=== PATIENT | female | born 1990 | race Hispanic/Latino ===

== ENCOUNTER → 2018-04-03 | Outpatient (CLI) | payer BC ==
[2018-04-03 13:18] LABS: BASO % 0.5 % (0.0-1.0); EOS % 0.5 % (0.0-3.0); HEMATOCRIT 41.1 % (36.0-47.0); HEMOGLOBIN 13.7 g/dl (12.0-15.5); LYMPH # 1.5 10^3/uL (1.5-6.5); LYMPH % 24.1 % (24.0-44.0); MEAN CORPUSCULAR HEMOGLOBIN 29.1 pg (27.0-33.0); MEAN CORPUSCULAR HGB CONC 33.3 g/dl (32.0-36.5); MEAN CORPUSCULAR VOLUME 87.4 fl (80.0-96.0); MONO # 0.5 10^3/uL (0.0-0.8); MONO % 7.5 % (0.0-5.0); NEUTROPHILS # 4.1 10^3/uL (1.8-7.7); NEUTROPHILS % 67.2 % (36.0-66.0); PLATELET COUNT, AUTOMATED 285 10^3/uL (150-450); WHITE BLOOD COUNT 6.1 10^3/uL (4.0-10.0)
[2018-04-04 16:20] LABS: HEPATITIS C VIRUS ABY INDEX 0.1 INDEX (<0.8); HIV 1&2 SCREEN CENTAUR NEGATIVE (NEGATIVE); RUBELLA IgG QUALITATIVE IMMUNE (IMMUNE)
== END ==
LOC: M SMT 09:59
PROVIDERS: ATTEND Specialist
DX: Z36.89 Encounter for other specified antenatal screening (principal)

== ENCOUNTER → 2018-05-04 | Outpatient (CLI) | payer BC ==
[2018-05-04 21:00] LABS: CHLAMYDIA DNA AMPLIFICATION NEGATIVE (NEGATIVE); GC DNA AMPLIFICATION NEGATIVE (NEGATIVE)
== END ==
LOC: M SMT 14:25
PROVIDERS: ATTEND Advanced Practice Midwife
DX: D64.9 Anemia, unspecified (principal)

== ENCOUNTER → 2018-06-14 | Outpatient (REF) | payer BC | LOC: M LAB REF 13:29 | PROVIDERS: ATTEND Advanced Practice Midwife | DX: O99.012 Anemia complicating pregnancy, second trimester (principal); Z3A.00 Weeks of gestation of pregnancy not specified ==

== ENCOUNTER → 2018-06-15 | Outpatient (CLI) | payer BC ==
--- NOTE | 2018-06-15 10:25 | REP ---
OBSTETRIC SONOGRAPHY: HISTORY: Supervision of . For anatomy. FINDINGS: Scanning through the gravid uterus demonstrates a viable single intrauterine gestation in a cephalic lie. motion is observed and heart rate is recorded at 157 beats per minute. The placenta is posterior grade 0 without evidence of previa or abruption. Amniotic fluid is subjectively normal. Closed cervical length is 4.4 cm, measured transabdominally. No extrauterine abnormalities observed. No anomaly is seen. The following anatomic structures are identified and felt to be sonographically unremarkable: cranium, choroid plexus, cavum, cerebellum and posterior fossa, face and profile, lungs, four-chamber heart with left and right ventricular outflow tract views, diaphragm, left-sided stomach, abdominal wall cord insertion, three-vessel umbilical cord, kidneys and bladder, spine, upper and lower extremities. Biometry Chart: BPD 4.2 cm = 18 weeks 5 days HC 15.3 cm = 18 weeks 2 days AC 12.8 cm = 18 weeks 2 days FL 2.8 cm = 18 weeks 5 days HL 2.6 cm = 18 weeks 2 days HC/AC ratio normal 1.20 Cephalic index normal 0.76 Estimated weight 242 grams, 0 pounds 8 ounces, 42nd percentile for 18 weeks 4 days. IMPRESSION: Viable single intrauterine gestation 18 weeks 3 days by today's composite sonographic criteria. ROSA ISELA by today's sonography November 13, 2018. anatomic survey is felt to be complete. Electronically Signed by Omar Anthony MD 06/15/2018 01:33 P
== END ==
LOC: M RAD 09:10
PROVIDERS: ATTEND Advanced Practice Midwife
DX: O99.012 Anemia complicating pregnancy, second trimester (principal); Z3A.18 18 weeks gestation of pregnancy

== ENCOUNTER → 2018-08-09 | Outpatient (CLI) | payer BC ==
[2018-08-09 14:14] LABS: HEMATOCRIT 35.6 % (36.0-47.0); HEMOGLOBIN 11.4 g/dl (12.0-15.5); MEAN CORPUSCULAR HEMOGLOBIN 28.7 pg (27.0-33.0); MEAN CORPUSCULAR VOLUME 89.7 fl (80.0-96.0); PLATELET COUNT, AUTOMATED 288 10^3/uL (150-450); RED BLOOD COUNT 3.97 10^6/uL (4.00-5.40); WHITE BLOOD COUNT 8.2 10^3/uL (4.0-10.0)
[2018-08-09 14:29] LABS: FERRITIN 4 NG/ML (8-252); GLUCOSE CHALLENGE TEST 1 HOUR 100 MG/DL (LESS THAN 140)
== END ==
LOC: M SMT 09:58
PROVIDERS: ATTEND Advanced Practice Midwife
DX: Z34.82 Encounter for supervision of other normal pregnancy, second trimester (principal)

== ENCOUNTER → 2018-10-19 | Outpatient (CLI) | payer BC ==
[~2018-10-19] MED LIST: PRENTAB9 PO
== END ==
LOC: M SMT 10:20
PROVIDERS: ATTEND Obstetrics & Gynecology
DX: Z34.83 Encounter for supervision of other normal pregnancy, third trimester (principal)

== ENCOUNTER → 2018-10-19 | Outpatient (REF) | payer BC | LOC: M LAB REF 13:26 | PROVIDERS: ATTEND Obstetrics & Gynecology | DX: Z34.83 Encounter for supervision of other normal pregnancy, third trimester (principal) ==

== ENCOUNTER 2018-11-03 03:13 | Inpatient (IN) | payer BC ==
[2018-11-03] VITALS (14 sets, daily range): BP systolic 99–119; BP diastolic 53–76
[~2018-11-03] VITALS: Ht 175.3 cm; Wt 73.0 kg
[2018-11-03 04:30] LABS: HEMATOCRIT 33.9 % (36.0-47.0); HEMOGLOBIN 10.9 g/dl (12.0-15.5); MEAN CORPUSCULAR HGB CONC 32.2 g/dl (32.0-36.5); MEAN CORPUSCULAR VOLUME 84.1 fl (80.0-96.0); PLATELET COUNT, AUTOMATED 233 10^3/uL (150-450); RED BLOOD COUNT 4.03 10^6/uL (4.00-5.40); WHITE BLOOD COUNT 9.4 10^3/uL (4.0-10.0)
[2018-11-03] MEDS ORDERED: FENTANYL 2MCG/ML ROPIVACAINE 0.2% IN 0.9% NACL 100ML IVBAG As Ordered ONE (05:13)
[2018-11-03] MEDS ORDERED: EPIDURAL/PCA KEYS XX PRN (05:38)
[2018-11-03] MEDS ORDERED: ePHEDrine SULFATE 25 MG/5 ML(5MG/ML) SYRINGE IV PRN (05:38)
[2018-11-03] MEDS ORDERED: EPIDURAL COMMENT XX SCH (05:38)
[2018-11-03] MEDS ORDERED: REFRIGERATOR IV KEYS XX PRN (05:38)
[2018-11-03] MEDS ORDERED: diphenhydrAMINE INJ 50MG/ML VIAL (J1200) IV PRN (05:38)
[2018-11-03] MEDS ORDERED: NALOXONE INJ 0.4 MG/1 ML VIAL (J2310) IV PRN (05:38)
[2018-11-03] MEDS ORDERED: FENTANYL/ROPIVACAINE/NACL BAG 100 ML EPIDURAL SCH (05:38)
[2018-11-03] MEDS ORDERED: ONDANSETRON 4MG/2ML VIAL (J2405) IV PRN (05:38)
[2018-11-03] MEDS ORDERED: PRENTAB9 PO (06:15)
--- NOTE | 2018-11-03 07:04 | IPNPDOC ---
Obstetrical Progress Note Date of Service Nov 03, 2018 Subjective Patient is comfortable with her epidural. Objective Vital Signs Date Time Temp Pulse Resp B/P (MAP) Pulse Ox O2 Delivery O2 Flow Rate FiO2 11/03/18 05:53 73 106/65 (79) 11/03/18 05:42 18 11/03/18 03:38 98.8 99 Assessment Heart Rate (FHR): 135 Variability: Moderate Accelerations: Positive Decelerations: None Heart Rate Tracing: Category I Tocometer Contractions: Yes Frequency: regular Sterile Vaginal Examination Dilation: 6 cm Effacement (%): 100% Station: 0 Postion/Presentation: Cephalic presentation Assessment and Plan EGA at Admission: 38.5 Status: Reassuring Group B Streptococcus: Negative Anticipate: Vaginal Delivery Additional Comments AROM to a scant amount of clear fluid. CHARLEY GALEAS CNM Nov 03, 2018 07:04
[2018-11-03] MEDS ORDERED: OXYTOCIN 30 UNITS IN 0.9% NaCl 500ML IV BAG (J2590) As Ordered ONE (07:39)
--- NOTE | 2018-11-03 08:36 | HPE ---
DATE OF ADMISSION: 11/03/2018 HISTORY OF PRESENT ILLNESS (HPI): Patient is a 28-year-old female who is a 3, para 0-1-1-1, at 38 weeks and 5 days based off of her last menstrual cycle. Patient's has been uncomplicated. She initiated care in her first trimester. She presents to labor and delivery tonight with complaints of contractions that started at midnight. She reports active movement. She denies leaking of fluid or vaginal bleeding. PAST MEDICAL HISTORY: Varicella as a child. SURGICAL HISTORY: Tonsillectomy and rhinoplasty. FAMILY HISTORY: Noncontributory. SOCIAL HISTORY: Patient is . She denies being a smoker. She denies any history of alcohol or drug abuse prior to or during . She has no history of any sexually transmitted infections. PAST PREGNANCIES: April 2013 at 20 weeks, she had a dilation and curettage (D and C). August 2017 at 41 weeks, she had a vaginal delivery of a living female weighing 7 pounds 12 ounces and no complications. LABS: Her blood type is A positive. Her antibody screen is negative. Her hemoglobin and hematocrit at first trimester is 13.7 and 41.1 with platelets of 285. Rubella is immune. VDRL is nonreactive. She did have a positive urinary tract infection (UTI), which was treated, with a repeat that showed no growth. Hepatitis B surface antigen is negative. HIV is negative. Hepatitis C is negative. Gonorrhea and chlamydia are both negative. NIPT testing showed low risk for Down's trisomy 13, trisomy 18, and normal XX female. Diabetes screen was 100, and her hemoglobin and hematocrit level were 11.4, 35.6 with platelets of 288. HIV in the third trimester was negative, and group B Streptococcus is negative. heart rate is 140, moderate variability, positive accelerations, no decelerations. Contractions are every 2-6 minutes. Patient is sitting up and moving with her contractions. VITAL SIGNS: Blood pressure is 119/76, heart rate 74, respiratory rate 16, temperature 98.2. STERILE VAGINAL EXAM: 5 cm dilated, 90% effaced, -1 station, anterior, soft. PHYSICAL ASSESSMENT: GENERAL: Alert and oriented times three. RESPIRATORY: Regular rate with no use of accessory muscles. ABDOMEN: Gravid. Cephalic presentation noted via vaginal exam and Ángel maneuver. LOWER EXTREMITIES: Generalized edema. No pitting edema. No clonus noted. ASSESSMENT: Intrauterine (IUP) at 38 weeks and 5 days gestation, active labor, group B Streptococcus (GBS) negative, category 1 heart rate tracing. PLAN: Admit to labor and delivery. Saline lock and labs per unit protocol. Out of bed ad ag. Clear liquid diet. Anesthesia consult per patient's request. Anticipate cervical change and spontaneous vaginal delivery. Consider amniotic artificial rupture of membrane.
[2018-11-03] MEDS ORDERED: DOCUSATE SODIUM 100 MG CAP PO PRN (09:00)
[2018-11-03] MEDS ORDERED: RHOGAM 300 MCG (1500 IU) INJ (J2790) IM SCH (09:00)
[2018-11-03] MEDS ORDERED: DIBUCAINE 1% OINTMENT 30GM TOP PRN (09:00)
[2018-11-03] MEDS ORDERED: METHYLERGONOVINE MALEATE 0.2 MG TAB PO PRN (09:00)
[2018-11-03] MEDS: PRENATAL VITAMINS CHEWABLE TABLET PO SCH (09:00)
[2018-11-03] MEDS ORDERED: ANUSOL HC CREAM 30GM TOP PRN (09:00)
[2018-11-03] MEDS ORDERED: IBUPROFEN 600 MG TAB PO PRN (09:00)
[2018-11-03] MEDS ORDERED: ACETAMINOPHEN TAB 650MG DOSE (2X325MG) PO PRN (09:00)
[2018-11-03] MEDS ORDERED: MEASLES,MUMPS,RUBELLA VACCINE INJ (MMR-II) (90707) SC SCH (09:00)
[2018-11-03] MEDS ORDERED: OXYTOCIN DRIP 30 UNITS in APPROPRIATE DILUENT 1 EA IV SCH (09:00)
[2018-11-03] MEDS ORDERED: SLF 3 ML SYR IV PRN (10:30)
[2018-11-03] MEDS: IBUPROFEN 800 MG TAB PO PRN (13:28)
[2018-11-03] MEDS: ACETAMINOPHEN 500 MG TAB PO PRN (19:49)
[2018-11-03] MEDS: SLF 3 ML SYR IV SCH (22:00)
[2018-11-04] MEDS: IBUPROFEN 800 MG TAB PO PRN ×2 (02:02→10:49)
[2018-11-04 06:00] VITALS: BP 105/63
[2018-11-04] MEDS: ACETAMINOPHEN 500 MG TAB PO PRN (06:04)
[2018-11-04] MEDS: SLF 3 ML SYR IV SCH (06:04)
[2018-11-04] MEDS: PRENATAL VITAMINS CHEWABLE TABLET PO SCH (10:49)
--- NOTE | 2018-11-05 19:21 | DN ---
DATE: 11/03/2018 at 0809 STATUS: Delivered. Spontaneous vaginal delivery. PROVIDER: Tamela Duncan CNM, JASMIN ANESTHESIA: Epidural. ESTIMATED BLOOD LOSS: 350 mL. FINDINGS: Female, 6 pounds, 14 ounces, 3130 grams, nuchal cord times one tight, scores 9 and 9. The patient is a 28-year-old female who is now a 3, para 2-0-1-2 at 38 weeks and five days who presented to labor and delivery in active labor. She received an epidural for anesthesia. She progressed to fully dilated at 0801 and pushed to a living female in the occiput anterior (OA) position with restitution to right occiput transverse (ROT). A tight nuchal cord was noted with delivery of the head. The anterior shoulder delivered with ease and to corpus immediately followed. Somersault maneuver was used to deliver the body. The baby was placed on the maternal abdomen active and crying with stimulation. The cord was clamped after pulsations ceased times two and cut by the father of the baby. A three-vessel cord was noted. The placenta delivered spontaneously and intact at 0814. Uterine hemostasis was achieved via rapid infusion of IV pitocin and fundal massage. The vagina, cervix and perineum was inspected and found to be intact. Mother plans on her . They plan on naming her Cattya. Both mother and baby are in stable condition. Both counts of instruments and sponges are correct.
== END 2018-11-04 13:31 | disposition home or self-care (01) | DRG 560 ==
LOC: M LDO 03:13 → M LDI 04:00 → M OBS 10:25
PROVIDERS: ADMIT Advanced Practice Midwife; ATTEND Advanced Practice Midwife
PROC: 10E0XZZ Delivery of Products of Conception, External Approach (ICD-10-PCS; principal; 2018-11-03)
PROC: 10907ZC Drainage of Amniotic Fluid, Therapeutic from Products of Conception, Via Natural or Artificial Opening (ICD-10-PCS; 2018-11-03)
DX: O69.1XX0 Labor and delivery complicated by cord around neck, with compression, not applicable or unspecified (principal); Z3A.38 38 weeks gestation of pregnancy; Z37.0 Single live birth

== ENCOUNTER → 2019-03-11 | Outpatient (CLI) | payer BC | LOC: M PLALAB 15:46 | PROVIDERS: ATTEND Obstetrics & Gynecology | DX: Z34.91 Encounter for supervision of normal pregnancy, unspecified, first trimester (principal) ==

== ENCOUNTER → 2019-05-24 | Outpatient (CLI) | payer BC ==
--- NOTE | 2019-05-24 12:33 | REP ---
Pelvic ultrasound to evaluate IUD placement, pelvic pain and bleeding: The study is performed with transabdominal, endovaginal and Doppler ultrasound assessment: The uterus is retroverted. The uterus is normal size measuring 6.1 x 3.6 x 4.0 cm. The endometrium is not thickened measuring up to 7 ml. There is an IUD within the 12 canal in the body of the uterus. Right ovary: The right ovary measures 3.6 by 1.0 x 1 x 1 cm and is normal size. There is no dominant mass or cyst. With color Doppler assessment there is vascular flow in the right ovary. Left ovary: The left ovary measures 2.5 x 1.3 x 1-2 cm and is normal size. There is no dominant mass or cyst. With color Doppler assessment there is vascular flow in the left ovary. There is no free fluid in the pelvis. Impression: The IUD is in the endometrial canal in the body of the uterus. The uterus is retroverted. Because of the retroverted position of the uterus is difficult to determine by ultrasound with certainty whether the wings of the IUD are in the cornua or if they are in the central endometrial canal. Follow-up CT or MRI with 3-D post processing reconstruction might be helpful if felt clinically indicated. The ovaries are unremarkable. Electronically Signed by Morgan Campbell MD 05/24/2019 12:24 P
== END ==
LOC: M WHC 10:05
PROVIDERS: ATTEND Advanced Practice Midwife
DX: N85.4 Malposition of uterus (principal); R10.2 Pelvic and perineal pain; Z97.5 Presence of (intrauterine) contraceptive device

== ENCOUNTER → 2019-12-04 | Outpatient (CLI) | payer BC ==
--- NOTE | 2019-12-10 14:25 | REP ---
LIMITED OBSTETRICAL ULTRASOUND CLINICAL: Spotting, for dating and viability. Threatened . TECHNIQUE: Transabdominal and transvaginal first trimester obstetrical ultrasound with color Doppler evaluation. FINDINGS: Examination demonstrates a small empty gestational sac with mean sac diameter of 4 mm, corresponding to 4 weeks 6 days gestational age. No pole or yolk sac is identified. A subchorionic hemorrhage was also noted measuring approximately 18 x 7 x 5 mm. IMPRESSION: Empty gestational sac and small subchorionic hemorrhage noted. Findings may represent in progress. Correlation with physical examination is recommended and repeat ultrasound may be warranted. MTDD
== END ==
LOC: M WHC 11:11
PROVIDERS: ATTEND Advanced Practice Midwife
DX: O20.0 Threatened abortion (principal); Z3A.01 Less than 8 weeks gestation of pregnancy

== ENCOUNTER → 2019-12-04 | Outpatient (CLI) | payer BC | LOC: M PLALAB 11:11 | PROVIDERS: ATTEND Advanced Practice Midwife | DX: O20.0 Threatened abortion (principal); Z3A.00 Weeks of gestation of pregnancy not specified ==

== ENCOUNTER → 2019-12-06 | Outpatient (CLI) | payer BC | LOC: M PLALAB 12:41 | PROVIDERS: ATTEND Advanced Practice Midwife | DX: O20.0 Threatened abortion (principal); Z3A.00 Weeks of gestation of pregnancy not specified ==

== ENCOUNTER → 2020-01-03 | Outpatient (REF) | payer BC ==
[2020-01-03 15:08] LABS: HEMATOCRIT 38.6 % (36.0-47.0); HEMOGLOBIN 12.5 g/dl (12.0-15.5); MEAN CORPUSCULAR HEMOGLOBIN 27.1 pg (27.0-33.0); MEAN CORPUSCULAR HGB CONC 32.4 g/dl (32.0-36.5); MEAN CORPUSCULAR VOLUME 83.5 fl (80.0-96.0); PLATELET COUNT, AUTOMATED 300 10^3/uL (150-450); RED BLOOD COUNT 4.62 10^6/uL (4.00-5.40)
[2020-01-03 16:18] LABS: FOLATE 15.4 NG/ML (>5.4); HEPATITIS C VIRUS ABY INDEX 0.2 INDEX (<0.8); HIV 1&2 SCREEN CENTAUR NEGATIVE (NEGATIVE)
== END ==
LOC: M PLALAB 12:33
PROVIDERS: ATTEND Advanced Practice Midwife
DX: Z34.81 Encounter for supervision of other normal pregnancy, first trimester (principal)

== ENCOUNTER → 2020-01-22 | Outpatient (CLI) | payer BC | LOC: M PLALAB 10:37 | PROVIDERS: ATTEND Advanced Practice Midwife | DX: Z34.81 Encounter for supervision of other normal pregnancy, first trimester (principal); Z3A.00 Weeks of gestation of pregnancy not specified ==

== ENCOUNTER → 2020-03-20 | Outpatient (CLI) | payer BC ==
--- NOTE | 2020-03-20 16:56 | REP ---
INDICATION: ANATOMY COMPARISON: None. TECHNIQUE: Transabdominal obstetrical ultrasound with color Doppler evaluation. FINDINGS: Examination demonstrates a single live intrauterine in variable presentation. motion is identified by technologist. Placenta is noted anterior and grade 1 without evidence for placenta previa or abruption. Amniotic fluid volume is normal. Cervix measures 3.3 cm in length and appears closed.. Gestational age by LMP 21 weeks 6 days with ROSA ISELA 07/25/2020. Gestational age by current measurements 20 weeks 1 day with ROSA ISELA 08/06/2020. FHR equals 158 beats per minute. BPD: 4.5 cm 19 weeks 4 days HC: 17.1 cm 19 weeks 5 days AC: 14.9 cm 20 weeks 1 day FL: 3.4 cm 20 weeks 4 days HL: 3.1 cm 20 weeks 3 days HC/AC: 1.15 Estimated weight 342 grams (83rdpercentile). Anatomical assessment demonstrates normal structures including cranium, choroid plexus, cavum, cerebellum/posterior fossa, facial features, lungs, four-chamber heart/ventricular outflow tracts, diaphragm, stomach, cord insertion/three-vessel cord, kidneys/bladder, spine, and extremities. IMPRESSION: Single live intrauterine in variable presentation demonstrating appropriate estimated weight and growth. Anatomical assessment is complete and normal. <Electronically signed by Oleg Ni > 03/20/20 [id number]
== END ==
LOC: M WHC 12:53
PROVIDERS: ATTEND Advanced Practice Midwife
DX: Z36.89 Encounter for other specified antenatal screening (principal); Z3A.20 20 weeks gestation of pregnancy

== ENCOUNTER → 2020-07-15 | Outpatient (REF) | payer BC | LOC: M SFHCWAGY 12:45 | PROVIDERS: ATTEND Advanced Practice Midwife | DX: Z36.89 Encounter for other specified antenatal screening (principal) ==

== ENCOUNTER → 2020-07-20 | Outpatient (REF) | payer BC ==
[2020-07-20 15:25] LABS: HEMATOCRIT 31.2 % (36.0-47.0); HEMOGLOBIN 9.8 g/dl (12.0-15.5); MEAN CORPUSCULAR HEMOGLOBIN 25.9 pg (27.0-33.0); MEAN CORPUSCULAR HGB CONC 31.4 g/dl (32.0-36.5); MEAN CORPUSCULAR VOLUME 82.3 fl (80.0-96.0); PLATELET COUNT, AUTOMATED 266 10^3/uL (150-450); RED BLOOD COUNT 3.79 10^6/uL (4.00-5.40); WHITE BLOOD COUNT 6.9 10^3/uL (4.0-10.0)
[2020-07-20 15:39] LABS: GLUCOSE CHALLENGE TEST 1 HOUR 108 MG/DL (LESS THAN 140)
[2020-07-20 15:53] LABS: FERRITIN 4 NG/ML (8-252)
== END ==
LOC: M PLALAB 12:55
PROVIDERS: ATTEND Advanced Practice Midwife
DX: Z36.89 Encounter for other specified antenatal screening (principal); Z86.2 Personal history of diseases of the blood and blood-forming organs and certain disorders involving the immune mechanism

== ENCOUNTER → 2020-07-20 | Outpatient (CLI) | payer BC ==
--- NOTE | 2020-07-20 14:53 | REP ---
INDICATION: UTERINE SIZE/DATE DISCREPANCY COMPARISON: 03/20/2020 TECHNIQUE: Transabdominal obstetrical ultrasound with color Doppler evaluation. FINDINGS: Examination demonstrates a single live intrauterine in cephalic presentation. motion is identified by technologist. Placenta is noted anterior and grade 2 without evidence for placenta previa or abruption. Amniotic fluid volume is normal. Cervix appears closed.. Gestational age by LMP and 1st U/S 39 weeks 2 days with ROSA ISELA 07/25/2020. Gestational age by current measurements 36 weeks 4 days with ROSA ISELA 08/13/2020. Gestational age by known ROSA ISELA of 08/10/2020 at 37 weeks 0 days FHR equals 142 beats per minute. BPD: 9.1 cm at 36 weeks 5 days HC: 32.9 cm at 37 weeks 2 days AC: 31.6 cm at 35 weeks 4 days FL: 7.2 cm at 37 weeks 0 days HL: 6.2 cm at 36 weeks 1 day HC/AC: 1.04 Estimated weight 2886 grams (36thpercentile based on age at 37 weeks 0 days). YOLY: 11.5 cm (7.5-24.4) Umbilical artery SD ratio: 2.73 (1.59-3.43) Limited anatomical assessment demonstrates normal cranium, cerebral ventricles, choroid plexus, cerebellum, lungs, heart/ventricular outflow tracts, diaphragm, stomach, kidneys/bladder and three-vessel cord. IMPRESSION: Single live intrauterine in cephalic presentation demonstrating appropriate estimated weight. <Electronically signed by Oleg Ni > 07/20/20 [id number]
== END ==
LOC: M WHC 13:00
PROVIDERS: ATTEND Advanced Practice Midwife
DX: O26.843 Uterine size-date discrepancy, third trimester (principal); Z3A.37 37 weeks gestation of pregnancy

== ENCOUNTER 2020-08-03 01:45 | Inpatient (IN) | payer BC ==
[~2020-08-03] VITALS: Ht 170.2 cm; Wt 74.0 kg
[2020-08-03] VITALS (25 sets, daily range): BP systolic 101–131; BP diastolic 56–79
--- NOTE | 2020-08-03 03:04 | HPEPDOC ---
Obstetrical History & Physical General Date of Admission August 03, 2020 at 02:50 History of Present Illness 30 yo female at 39 0/7 weeks by 6 week ultrasound (EDC=08/10/2020) presen ts with regular contractions for the last several hours. Contractions increased in intensity. She denies leakage of fluid. There is good movement. Chief Complaint: Contractions, term Information Provided By: Patient Age: 30 : 4 Term: 2 Pre-term: 0 Abortions: 1 Livin Care Care: Good Care Dating Final EDC: August 10, 2020 Final EDC by: 1st trimester (US) Past Medical History Past Obstetrical History : Past Obstetrical History: Multigravida Past Medical History Medical History ob hx: 1. SAB 2. 2017 TSVD female 3. 2018 TSVD female Surgical History: Dilatation and Curettage Family History Significant Family History: No pertinent family hx Social History Marital Status: Family situation: Spouse/partner home Psychosocial History: No pertinent psych hx * Smoker: non-smoker Allergies Coded Allergies: No Known Allergies (Unverified , 11/03/18) Medications Scheduled No.137/Iron/Folic Acd ( Vitamin Tablet) 1 Each Tablet, 1 TAB PO DAILY Physical Examination Physical Examination GENERAL: Alert and oriented times three. BREAST: . ABDOMEN: Gravid and non-tender to touch. FETUS: Is vertex (VTX) by sterile vaginal examination (SVE), fetus is vertex (VTX) by Ángel. HEART RATE: Regular rate and rhythm. LUNGS: Clear to auscultation (CTA). EXTREMITIES: No edema. No clonus. Deep tendon reflexes (DTRs) + . Vital Signs/I&O Vital Signs Date Time Temp Pulse Resp B/P (MAP) Pulse Ox O2 Delivery O2 Flow Rate FiO2 08/03/20 02:27 98.5 66 16 131/78 (95) Room Air Laboratory Data 24H LABS Laboratory Tests 2 08/03/20 02:54: Serology Scanned Report Hepatitis B Testing Pertinent Laboratoy Data Blood Type: A+ Group B Streptococcus: Negative Vaginal Examination Dilation: 3 cm Effacement: 80% Station: -2 Cervical Consistency: Soft Cervical Position: Posterior Presentation: Cephalic presentation Assessment Variability: Moderate Accelerations: Positive Decelerations: None Tocometer Contractions: Yes Frequency: regular Duration: less than 60 seconds Strength: palpated as moderate Assessment/Plan Assessment Pt is a 30-year-old (G)4 para (P)2-0-1-2 at 39+0 weeks by 6-week ultrasound presents in labor Plan Admit and orient. Firmware Architect and consent. Group B Streptococcus (GBS) negative. Labs and intravenous (IV) per unit protocol. Anticipate normal spontaneous delivery (). C-S as appropriate. NEELAM PAEZ MD August 03, 2020 03:04
[2020-08-03 04:18] LABS: HEMATOCRIT 32.3 % (36.0-47.0); HEMOGLOBIN 10.1 g/dl (12.0-15.5); MEAN CORPUSCULAR HEMOGLOBIN 25.5 pg (27.0-33.0); MEAN CORPUSCULAR HGB CONC 31.3 g/dl (32.0-36.5); MEAN CORPUSCULAR VOLUME 81.6 fl (80.0-96.0); PLATELET COUNT, AUTOMATED 253 10^3/uL (150-450); RED BLOOD COUNT 3.96 10^6/uL (4.00-5.40); WHITE BLOOD COUNT 7.3 10^3/uL (4.0-10.0)
[2020-08-03] MEDS ORDERED: OXYTOCIN DRIP 30 UNITS in IV 1 EA IV SCH (06:45)
[2020-08-03] MEDS: LR 1,000 ML IV SCH ×2 (08:04→14:05)
[2020-08-03] MEDS: PRENATAL VITAMINS CHEWABLE TABLET PO SCH (09:00)
[2020-08-03] MEDS ORDERED: FENTANYL 2MCG/ML ROPIVACAINE 0.2% IN 0.9% NACL 100ML IVBAG As Ordered ONE (10:37)
[2020-08-03] MEDS ORDERED: diphenhydrAMINE 50MG/ML VIAL (J1200) IV PRN (11:20)
[2020-08-03] MEDS ORDERED: ePHEDrine SULFATE 25 MG/5 ML(5MG/ML) SYRINGE IV PRN (11:20)
[2020-08-03] MEDS ORDERED: LACTATED RINGER'S 1000 ML IV PRN (11:20)
[2020-08-03] MEDS ORDERED: ONDANSETRON 4MG/2ML VIAL IV PRN (11:20)
[2020-08-03] MEDS ORDERED: FENTANYL/ROPIVACAINE/NACL BAG 100 ML EPIDURAL SCH (11:20)
[2020-08-03] MEDS ORDERED: NALOXONE INJ 0.4MG/1ML VIAL (J2310 PER 1MG) IV PRN (11:20)
[2020-08-03] MEDS ORDERED: REFRIGERATOR IV KEYS XX PRN (11:20)
[2020-08-03] MEDS ORDERED: EPIDURAL COMMENT XX SCH (11:20)
[2020-08-03] MEDS ORDERED: EPIDURAL/PCA KEYS XX PRN (11:20)
[2020-08-03] MEDS ORDERED: METHYLERGONOVINE MALEATE 0.2 MG TAB PO PRN (14:25)
[2020-08-03] MEDS ORDERED: IBUPROFEN 800 MG TAB PO PRN (14:25)
[2020-08-03] MEDS ORDERED: ANUSOL HC CREAM 30GM TOP PRN (14:25)
[2020-08-03] MEDS ORDERED: DIBUCAINE 1% OINTMENT 30GM TOP PRN (14:25)
[2020-08-03] MEDS ORDERED: IBUPROFEN 600MG TAB PO PRN (14:25)
[2020-08-03] MEDS ORDERED: ACETAMINOPHEN TAB 650MG DOSE (2X325MG) PO PRN (14:25)
[2020-08-03] MEDS ORDERED: MEASLES,MUMPS,RUBELLA VACCINE INJ (MMR-II) (90707) SC SCH (14:25)
[2020-08-03] MEDS ORDERED: DOCUSATE SODIUM 100MG CAPSULE PO PRN (14:25)
--- NOTE | 2020-08-03 14:25 | DNPDOC ---
[facility] Delivery Note Delivery Note DATE OF DELIVERY: 08/03/20 at 1342 PREDELIVERY DIAGNOSIS: 39-0/7 weeks' gestation and labor. POST DELIVERY DIAGNOSIS: Delivered. PROCEDURE: Spontaneous vaginal delivery. CERTIFIED FIRST ASSISTANT: Charley Duncan CNM, JASMIN ANESTHESIA: epidural. ESTIMATED BLOOD LOSS: 250 mL. FINDINGS: 6 pounds 15 ounces; 3150 grams; female , Score 8/9, nuchal cord times 1 tight and around left foot, marginal cord insertion. DELIVERY SUMMARY: Liliana is a 30-year-old female who is now a who presented labor in delivery in early labor. IV Pitocin was used to augment her labor. She requested an epidural for pain management. AROM was done at 1223 to a moderate amount of clear fluid. She progressed to fully dilated at 1336 and pushed to a living female in the OA position with restitution to ROT. The anterior shoulder delivered with ease and the corpus immediately followed via Somersault. The baby was placed on the abdomen active and crying. The cord was clamped x2 and cut by the patient. A 3-vessel cord was noted. The placenta delivered spontaneously and intact at 1346. Uterine hemostasis was achieved via rapid infusion of IV Pitocin and fundal massage. The perineum, vagina and cervix was inspected and found to be intact. Mom plans on . They plan on naming her Shruti. Both mom and baby are in stable condition. All counts of instruments and sponges are correct. CHARLEY DUNCAN CNM August 03, 2020 14:25
[2020-08-03] MEDS: RHOGAM 300 MCG (1500 IU) INJ (J2790) IM SCH (16:26)
[2020-08-04] MEDS: ACETAMINOPHEN 500 MG TAB PO PRN ×2 (00:10→12:39)
[2020-08-04 06:00] VITALS: BP_SYST 119; BP_SYST 127; BP_DIAS 69; BP_DIAS 72
[2020-08-04] MEDS: RHOGAM 300 MCG (1500 IU) INJ (J2790) IM SCH (07:05)
[2020-08-04] MEDS: PRENATAL VITAMINS CHEWABLE TABLET PO SCH (07:58)
[2020-08-04] MEDS ORDERED: IBUP80TA PO (08:15)
[2020-08-04] MEDS ORDERED: ACET-683 PO (08:15)
== END 2020-08-04 15:05 | disposition home or self-care (01) | DRG 560 ==
LOC: M LDO 01:45 → M LDI 02:50 → M OBS 16:20
PROVIDERS: ADMIT Specialist; ATTEND Specialist
PROC: 10E0XZZ Delivery of Products of Conception, External Approach (ICD-10-PCS; principal; 2020-08-03)
PROC: 10907ZC Drainage of Amniotic Fluid, Therapeutic from Products of Conception, Via Natural or Artificial Opening (ICD-10-PCS; 2020-08-03)
DX: O69.1XX0 Labor and delivery complicated by cord around neck, with compression, not applicable or unspecified (principal); Z3A.39 39 weeks gestation of pregnancy; Z37.0 Single live birth; O69.2XX0 Labor and delivery complicated by other cord entanglement, with compression, not applicable or unspecified

== ENCOUNTER → 2020-12-07 | Outpatient (REF) ==
[~2020-12-07] MED LIST changes: +ACET-683 PO; +IBUP80TA PO
== END ==
LOC: M LAB 15:53
PROVIDERS: ATTEND Nurse Practitioner Adult Health
DX: Z00.00 Encounter for general adult medical examination without abnormal findings (principal)